=== PATIENT | female | born 1990 | race Caucasian/White ===

== ENCOUNTER 2019-07-02 01:14 | Emergency (ER) | payer OTHER ==
[~2019-07-02] VITALS: Ht 170.2 cm; Wt 59.0 kg
[2019-07-02 01:30] VITALS: Ht 170.2 cm; Wt 59.0 kg
[2019-07-02 01:40] VITALS: BP 100/64
== END 2019-07-02 01:52 | disposition left against medical advice (07) ==
LOC: ED 01:14
DX: G40.909 Epilepsy, unspecified, not intractable, without status epilepticus (principal)